=== PATIENT | female | born 1945 | race Two or more races ===

== ENCOUNTER → 2017-10-25 | Outpatient (CLI) | payer OTHER ==
[~2017-10-25] MED LIST: KETO10TA2 PO; NORVASC2.5 M1; SYNTHROID100 MCG PO
== END | disposition home or self-care (01) ==
LOC: MAMO-SONO 15:06
DX: Z12.31 Encounter for screening mammogram for malignant neoplasm of breast (principal); Z87.898 Personal history of other specified conditions; N60.11 Diffuse cystic mastopathy of right breast

== ENCOUNTER → 2018-01-03 | Outpatient (CLI) | payer OTHER | END | disposition home or self-care (01) | LOC: RAD 501 15:00 | DX: S82.851D Displaced trimalleolar fracture of right lower leg, subsequent encounter for closed fracture with routine healing (principal); S82.51XD Displaced fracture of medial malleolus of right tibia, subsequent encounter for closed fracture with routine healing ==

== ENCOUNTER 2018-07-18 12:28 | Outpatient (CLI) | payer OTHER | END 2018-07-18 12:45 | disposition home or self-care (01) | LOC: NUCLEAR 12:28 | DX: M81.0 Age-related osteoporosis without current pathological fracture (principal) ==

== ENCOUNTER 2018-10-07 08:45 | Outpatient (CLI) | payer OTHER | END 2018-10-07 08:56 | disposition home or self-care (01) | LOC: LAB 08:45 | DX: E03.8 Other specified hypothyroidism (principal); E56.1 Deficiency of vitamin K ==

== ENCOUNTER 2018-12-13 13:18 | Outpatient (CLI) | payer OTHER | END 2018-12-13 13:21 | disposition home or self-care (01) | LOC: MAMO-SONO 13:18 | DX: Z12.31 Encounter for screening mammogram for malignant neoplasm of breast (principal); Z87.898 Personal history of other specified conditions; N60.11 Diffuse cystic mastopathy of right breast ==

== ENCOUNTER 2019-07-07 17:06 | Emergency (ER) | payer OTHER ==
[~2019-07-07] VITALS: Ht 165.1 cm; Wt 59.9 kg
[2019-07-07] MEDS ORDERED: ASA81 MG PO (17:30)
[2019-07-07] MEDS ORDERED: LEXAPRO5 MG PO (17:30)
[2019-07-07] MEDS ORDERED: FOLIC ACID1 MG PO (17:31)
[2019-07-07] MEDS ORDERED: PROTONIX20 MG PO (17:31)
[2019-07-07] MEDS ORDERED: ESTAZOLAM1 MG PO (17:31)
== END 2019-07-07 22:16 | disposition home or self-care (01) ==
LOC: ER 17:06
DX: E86.0 Dehydration (principal); R11.11 Vomiting without nausea

== ENCOUNTER 2019-12-04 13:56 | Outpatient (CLI) | payer OTHER ==
[~2019-12-04 13:56] MED LIST changes: +ASA81 MG PO; +ESTAZOLAM1 MG PO; +FOLIC ACID1 MG PO; +LEXAPRO5 MG PO; +PROTONIX20 MG PO
== END 2019-12-04 14:17 | disposition home or self-care (01) ==
LOC: RAD 13:56
DX: K40.20 Bilateral inguinal hernia, without obstruction or gangrene, not specified as recurrent (principal)

== ENCOUNTER 2019-12-15 09:56 | Outpatient (CLI) | payer OTHER | END 2019-12-15 10:08 | disposition home or self-care (01) | LOC: LAB 09:56 | DX: K90.0 Celiac disease (principal); K29.30 Chronic superficial gastritis without bleeding ==

== ENCOUNTER 2020-05-24 11:52 | Outpatient (CLI) | payer OTHER | END 2020-05-24 11:59 | disposition home or self-care (01) | LOC: MAMO-SONO 11:52 | PROVIDERS: ATTEND Obstetrics & Gynecology | DX: Z12.31 Encounter for screening mammogram for malignant neoplasm of breast (principal); N60.11 Diffuse cystic mastopathy of right breast ==

== ENCOUNTER 2020-11-29 10:56 | Outpatient (CLI) | payer OTHER | END 2020-11-29 11:07 | disposition home or self-care (01) | LOC: LAB 10:56 | PROVIDERS: ATTEND Orthopaedic Surgery | DX: E56.1 Deficiency of vitamin K (principal); E55.9 Vitamin D deficiency, unspecified; E21.2 Other hyperparathyroidism; M85.88 Other specified disorders of bone density and structure, other site; E88.89 Other specified metabolic disorders; M81.8 Other osteoporosis without current pathological fracture; K90.0 Celiac disease; K29.30 Chronic superficial gastritis without bleeding ==

== ENCOUNTER 2021-01-27 14:21 | Outpatient (CLI) | payer OTHER | END 2021-01-27 14:22 | disposition home or self-care (01) | LOC: RAD 14:21 | PROVIDERS: ATTEND Internal Medicine Geriatric Medicine | DX: I11.9 Hypertensive heart disease without heart failure (principal); R06.02 Shortness of breath ==

== ENCOUNTER 2021-12-18 13:59 | Outpatient (CLI) | payer OTHER | END 2021-12-18 14:00 | disposition home or self-care (01) | LOC: NUCLEAR 13:59 | PROVIDERS: ATTEND Orthopaedic Surgery | DX: M81.0 Age-related osteoporosis without current pathological fracture (principal) ==

== ENCOUNTER 2021-12-23 09:59 | Outpatient (CLI) | payer OTHER | END 2021-12-23 10:04 | disposition home or self-care (01) | LOC: LAB 09:59 | PROVIDERS: ATTEND Orthopaedic Surgery | DX: E55.9 Vitamin D deficiency, unspecified (principal); M85.9 Disorder of bone density and structure, unspecified; E21.3 Hyperparathyroidism, unspecified; E88.9 Metabolic disorder, unspecified; M81.8 Other osteoporosis without current pathological fracture; E56.1 Deficiency of vitamin K ==

== ENCOUNTER 2022-02-16 13:57 | Outpatient (CLI) | payer OTHER | END 2022-02-16 14:07 | disposition home or self-care (01) | LOC: MAMO-SONO 13:57 | PROVIDERS: ATTEND Obstetrics & Gynecology | DX: N60.11 Diffuse cystic mastopathy of right breast (principal) ==

== ENCOUNTER 2022-12-07 13:12 | Outpatient (CLI) | payer OTHER | END 2022-12-07 13:24 | disposition home or self-care (01) | LOC: MAMO-SONO 13:12 | PROVIDERS: ATTEND Obstetrics & Gynecology | DX: N60.11 Diffuse cystic mastopathy of right breast (principal) ==

== ENCOUNTER → 2022-12-15 | Outpatient (CLI) | payer OTHER | END | disposition home or self-care (01) | LOC: NUCLEAR 13:30 | PROVIDERS: ATTEND Orthopaedic Surgery | DX: C88.4 Extranodal marginal zone B-cell lymphoma of mucosa-associated lymphoid tissue [MALT-lymphoma] (principal); C83.90 Non-follicular (diffuse) lymphoma, unspecified, unspecified site; C79.52 Secondary malignant neoplasm of bone marrow | CPT/HCPCS: 78815; A9552 ==

== ENCOUNTER 2023-01-14 11:40 | Outpatient (CLI) | payer OTHER | END 2023-01-14 11:47 | disposition home or self-care (01) | LOC: RAD 11:40 | PROVIDERS: ATTEND Orthopaedic Surgery | DX: M25.551 Pain in right hip (principal); M46.1 Sacroiliitis, not elsewhere classified; M54.59 Other low back pain ==

== ENCOUNTER 2023-12-14 11:49 | Outpatient (CLI) | payer OTHER | END 2023-12-14 11:55 | disposition home or self-care (01) | LOC: MAMO-SONO 11:49 | PROVIDERS: ATTEND Obstetrics & Gynecology | DX: Z12.31 Encounter for screening mammogram for malignant neoplasm of breast (principal); N60.11 Diffuse cystic mastopathy of right breast ==

== ENCOUNTER 2023-12-24 12:54 | Outpatient (CLI) | payer OTHER | END 2023-12-24 13:01 | disposition home or self-care (01) | LOC: NUCLEAR 12:54 | PROVIDERS: ATTEND Orthopaedic Surgery | DX: M81.0 Age-related osteoporosis without current pathological fracture (principal) ==

== ENCOUNTER 2024-06-01 14:06 | Outpatient (CLI) | payer OTHER | END 2024-06-01 14:17 | disposition home or self-care (01) | LOC: RAD 14:06 | PROVIDERS: ATTEND Internal Medicine Geriatric Medicine | DX: M12.532 Traumatic arthropathy, left wrist (principal) ==

== ENCOUNTER 2024-12-15 13:08 | Outpatient (CLI) | payer OTHER | END 2024-12-15 13:09 | disposition home or self-care (01) | LOC: NUCLEAR 13:08 | PROVIDERS: ATTEND Orthopaedic Surgery | DX: M81.0 Age-related osteoporosis without current pathological fracture (principal) ==

== ENCOUNTER 2024-12-18 12:56 | Outpatient (CLI) | payer OTHER | END 2024-12-18 13:02 | disposition home or self-care (01) | LOC: MAMO-SONO 12:56 | PROVIDERS: ATTEND Obstetrics & Gynecology | DX: N60.11 Diffuse cystic mastopathy of right breast (principal); Z12.31 Encounter for screening mammogram for malignant neoplasm of breast ==

== ENCOUNTER 2025-03-27 11:00 | Outpatient (CLI) | payer OTHER | END 2025-03-27 11:02 | disposition home or self-care (01) | LOC: RAD 11:00 | PROVIDERS: ATTEND Plastic Surgery Surgery of the Hand | DX: Z01.818 Encounter for other preprocedural examination (principal) ==